=== PATIENT | female | born 1955 | race African-American/Black ===

== ENCOUNTER 2018-01-02 09:24 | Outpatient (CLI) | payer OTHER ==
--- NOTE | 2018-01-03 15:10 | MMO ---
BILATERAL SCREENING MAMMOGRAM: Date: 01/02/18 INDICATION: Annual exam. COMPARISON: None. Last mammogram done over 10 years ago was unable to be obtained for comparison, so this will se rve as the patient's baseline exam. FINDINGS: Interpretation of this exam was assisted with computer-aided detection. There are scattered fibroglandular elements bilaterally. There are benign-appearing calcifications bilaterally. There is a pacemaker generator overlying the left chest wall, slightly limiting exam. No suspicious mass, cluster of microcalcifications, or area of architectural distortion is evident. IMPRESSION: BIRADS 2: Benign Finding(s) Recommend routine annual mammographic screening. POS: [facility]
== END 2018-01-02 09:25 | disposition home or self-care (01) ==
LOC: SCSMAMMO 09:24
PROVIDERS: ATTEND Family Medicine
DX: Z12.31 Encounter for screening mammogram for malignant neoplasm of breast (principal)
CPT/HCPCS: 77067

== ENCOUNTER 2018-04-09 07:09 | Day surgery (SDC) | payer OTHER ==
[2018-04-08 15:48] VITALS: BMI 34.2
--- NOTE | 2018-04-09 09:56 | OP ---
DATE OF PROCEDURE: 04/09/2018 SURGEON: Akira Mendoza M.D. PROCEDURE: Screening colonoscopy. PREOPERATIVE DIAGNOSIS: Average risk colon cancer screening. OPERATIVE NOTE: Informed consent was obtained from the patient. She was sedated with total intraven ous anesthesia. The rectal exam was normal. The preparation quality was excellent. The colonoscope was advanced to the cecum where the ileocecal valve and appendiceal orifice were clearly identified. The colonic mucosa was normal throughout. There was moderate diverticulosis throughout the colon. Retroflex views in the rectum were normal. IMPRESSION: 1. Moderate diverticulosis throughout the colon. 2. Otherwise normal screening colonoscopy. RECOMMENDATIONS: 1. Repeat colonoscopy in 10 years. 2. High fiber diet.
[2018-04-09] MEDS ORDERED: Lidocaine 1% PF 5 ML VIAL ONE (11:24)
[2018-04-09] MEDS ORDERED: PROPOFOL 200 MG/20 ML VIAL ONE (11:24)
== END 2018-04-09 10:15 | disposition home or self-care (01) ==
LOC: SDC 07:09
PROVIDERS: ATTEND Internal Medicine Gastroenterology
PROC: 0DJD8ZZ Inspection of Lower Intestinal Tract, Via Natural or Artificial Opening Endoscopic (ICD-10-PCS; principal; 2018-04-09)
DX: Z12.11 Encounter for screening for malignant neoplasm of colon (principal); K57.30 Diverticulosis of large intestine without perforation or abscess without bleeding; E11.9 Type 2 diabetes mellitus without complications; B19.20 Unspecified viral hepatitis C without hepatic coma; I11.0 Hypertensive heart disease with heart failure; I50.9 Heart failure, unspecified; E78.00 Pure hypercholesterolemia, unspecified; G47.30 Sleep apnea, unspecified; Z87.891 Personal history of nicotine dependence; Z88.1 Allergy status to other antibiotic agents; Z79.82 Long term (current) use of aspirin; Z79.899 Other long term (current) drug therapy
CPT/HCPCS: J2001; J2704

== ENCOUNTER 2020-03-09 07:52 | Outpatient (CLI) | payer OTHER ==
--- NOTE | 2020-03-09 10:10 | ULT ---
HEPATIC ULTRASOUND WITH ALMANZAR SCALE AND COLOR FLOW AND SPECTRAL DOPPLER IMAGING: Date: 03/09/2020 HISTORY: Hepatitis C. FINDINGS: The liver demonstrates increased echogenicity consistent with fatty infiltration. No focal mass or in trahepatic ductal dilatation is seen. The gallbladder is normal without gallstones, gallbladder wall thickening, or pericholecystic fluid. The common duct measures 5.0 mm in diameter. The spleen is norm al, measuring 11.0 cm in length. The visualized portions of the pancreas are unremarkable. No free fl uid is seen. There is normal flow and spectral waveforms in the hepatic, portal, and splenic vasculature. IMPRESSION: Fatty liver. POS: [facility]
== END 2020-03-09 07:53 | disposition home or self-care (01) ==
LOC: BICULT 07:52
PROVIDERS: ATTEND Physician Assistant Medical
DX: B18.2 Chronic viral hepatitis C (principal); K76.0 Fatty (change of) liver, not elsewhere classified
CPT/HCPCS: 76705

== ENCOUNTER 2020-05-09 15:38 | Inpatient (IN) | payer OTHER ==
[~2020-05-09 15:38] MED LIST: Iopamidol-370 76% 500 ML 1 ML ONE
[2020-05-09] MEDS ORDERED: Ondansetron PF 4 MG/2 ML Vial ONE (16:02)
[2020-05-09] MEDS ORDERED: Fentanyl 100 MCG/2 ML VIAL ONE ×3 (16:02→18:43)
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
[2020-05-09 17:23] LABS: Hemoglobin 15.3 g/dL (12.0-16.0); Mean Corpuscular Hemoglobin 33.9 pg (27.0-31.0); Mean Corpuscular Volume 99.6 fL (78.0-98.0); Mean Platelet Volume 7.8 fL (7.4-10.4); Platelet Count 194 thou/uL (130-400); RBC Distribution Width 12.1 % (11.5-14.5); Red Blood Cell (RBC) Count 4.51 mill/uL (4.20-5.40); White Blood Cell (WBC) Count 10.2 thou/uL (4.8-10.8)
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
[2020-05-09 17:40] LABS: ALT (SGPT) 61 U/L (8-55); AST (SGOT) 65 U/L (5-34); Albumin 4.1 g/dL (3.4-4.8); Alkaline Phosphatase 118 U/L (40-110); Anion Gap 18 mmol/L (10-20); BUN (Urea Nitrogen) 16 mg/dL (9.8-20.1); Bilirubin, Total 0.5 mg/dL (0.2-1.2); Calc. Creatinine Clearance 0 mL/min (70-130); Calcium 8.9 mg/dL (7.8-10.44); Carbon Dioxide 21 mmol/L (23-31); Chloride 100 mmol/L (98-107); Estimated GFR-MDRD 87; Globulin 4.4 g/dL (2.4-3.5); Glucose 127 mg/dL (80-115); Protein, Total 8.5 g/dL (6.0-8.3); Sodium 134 mmol/L (136-145)
[2020-05-09 17:48] LABS: Band 5 % (5-11); Eosinophils 1 % (0-10); Lymphocytes 61 % (21-51); MDiff Complete? YES; Macrocytosis SLIGHT = 6-15 cells (100X) (0-5/hpf); Monocytes 6 % (0-10); Neutrophil 25 % (42-75); Platelet Morphology Comment Appears Adequate; Polychromasia SLIGHT = 2-3 cells (100X) (0-2/hpf); Reactive Lymphocytes 2 % (0-10)
[2020-05-09 18:02] LABS: CKMB 4.8 ng/mL (0-6.6)
[2020-05-09] MEDS ORDERED: Ketorolac Tromethamine 30 MG/ML VIAL ONE (18:43)
[2020-05-09] MEDS ORDERED: Dextrose 5% in Water 1,000 ML IV PRN (21:39)
[2020-05-09] MEDS ORDERED: hydrALAZINE 20 MG/ML VIAL SLOW IVP PRN (21:39)
[2020-05-09] MEDS ORDERED: Ondansetron PF 4 MG/2 ML Vial IVP PRN (21:39)
[2020-05-09] MEDS ORDERED: HumaLOG 300 UNITS/3 ML VIAL SC PRN (21:39)
[2020-05-09] MEDS ORDERED: Ondansetron ODT 4 MG TAB PO PRN (21:39)
[2020-05-09] MEDS ORDERED: Dextrose 50% Abboject 50 ML SYRINGE SLOW IVP PRN (21:39)
[2020-05-09] MEDS ORDERED: Ketorolac Tromethamine 30 MG/ML VIAL IVP SCH (21:45)
[2020-05-09] MEDS ORDERED: Famotidine 20 MG TAB PO SCH (22:00)
[2020-05-09 22:17] LABS: Magnesium 1.6 mg/dL (1.6-2.6); Phosphorus 5.2 mg/dL (2.3-4.7)
[2020-05-09 22:22] LABS: Troponin I 0.171 ng/mL (< 0.028)
[2020-05-09] MEDS ORDERED: Magnesium Sulfate 3 GM in Sodium Chloride 0.9% 250 ML 250 ML IVPB SCH (22:30)
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
[2020-05-09] MEDS: Sodium Chloride 0.9% 1,000 ML IV SCH (23:46)
[2020-05-09 23:59] VITALS: BMI 38.0
[2020-05-10 00:18] LABS: Troponin I 0.173 ng/mL (< 0.028)
[2020-05-10] MEDS: Ketorolac Tromethamine 30 MG/ML VIAL IVP SCH ×3 (05:57→18:31)
[2020-05-10 07:04] LABS: #Eosinphils 0.1 thou/uL (0.0-0.7); #Monocytes 0.6 thou/uL (0.11-0.59); #Neutrophils 3.1 thou/uL (1.40-6.50); %Basophils 0.6 % (0.0-1.0); %Eosinophils 0.8 % (0.0-10.0); %Lymphocytes 44.2 % (21.0-51.0); %Monocytes 8.1 % (0.0-10.0); %Neutrophils 46.3 % (42.0-75.0); Hemoglobin 13.7 g/dL (12.0-16.0); Mean Corpuscular HGB CONC 34.2 g/dL (32.0-36.0); Mean Corpuscular Volume 99.6 fL (78.0-98.0); Platelet Count 183 thou/uL (130-400); RBC Distribution Width 12.1 % (11.5-14.5); Red Blood Cell (RBC) Count 4.02 mill/uL (4.20-5.40); White Blood Cell (WBC) Count 6.8 thou/uL (4.8-10.8)
[2020-05-10 07:09] LABS: Anion Gap 15 mmol/L (10-20); BUN (Urea Nitrogen) 16 mg/dL (9.8-20.1); Calc. Creatinine Clearance 129 mL/min (70-130); Calcium 8.5 mg/dL (7.8-10.44); Carbon Dioxide 21 mmol/L (23-31); Chloride 102 mmol/L (98-107); Estimated GFR-MDRD Greater than 90; Glucose 120 mg/dL (80-115); Magnesium 2.5 mg/dL (1.6-2.6); Phosphorus 3.9 mg/dL (2.3-4.7); Potassium 4.3 mmol/L (3.5-5.1); Sodium 134 mmol/L (136-145)
[2020-05-10] MEDS ORDERED: CEFAZOLIN 2 GM in Premix Bag 1 BAG IVPB SCH (07:45)
[2020-05-10] MEDS: Carvedilol 6.25 MG TAB PO SCH ×2 (08:20→18:31)
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
[2020-05-10] MEDS: Sodium Chloride 0.9% 1,000 ML IV SCH (08:31)
[2020-05-10] MEDS ORDERED: PHENYLEPHRINE-NS 100 MCG/ML 10 ML SYRINGE ONE (09:48)
[2020-05-10] MEDS ORDERED: Bupivacaine HCl 0.5%/Epinephrine 1:200,000/PF 30 ml Vial ONE (09:48)
[2020-05-10] MEDS ORDERED: Ondansetron PF 4 MG/2 ML Vial ONE (09:48)
[2020-05-10] MEDS ORDERED: PROPOFOL 200 MG/20 ML VIAL ONE (09:48)
[2020-05-10] MEDS ORDERED: Dexamethasone 20 MG/5 ML VIAL ONE (09:48)
[2020-05-10] MEDS ORDERED: Rocuronium Bromide 10 MG/ML (10ML VIAL) ONE (09:48)
[2020-05-10] MEDS ORDERED: Lidocaine 1% PF 5 ML VIAL ONE (09:48)
[2020-05-10] MEDS: Famotidine 20 MG TAB PO SCH ×2 (10:14→21:12)
[2020-05-10 11:56] LABS: SARS-CoV-2 MS2 Positive; SARS-CoV-2 N Gene Negative; SARS-CoV-2 S Gene Negative; SARS-CoV-2 by NAA Not Detected (NotDetected); SARS-CoV-2 orf1ab Negative
[2020-05-10] MEDS ORDERED: Fentanyl 100 MCG/2 ML VIAL ONE ×2 (13:14→13:18)
[2020-05-10] MEDS ORDERED: Midazolam HCl 2 mg/2 ml Vial ONE (13:18)
[2020-05-10] MEDS ORDERED: Phenylephrine 10 MG/ML VIAL ONE (15:50)
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
[2020-05-10] MEDS ORDERED: SUGAMMADEX SODIUM 500 MG/5 ML VIAL ONE (16:23)
--- NOTE | 2020-05-10 16:31 | RAD ---
Left humerus 2 views intraoperative fluoroscopy HISTORY: Fracture. FINDINGS: Intraoperative fluoroscopy was provided for internal fixation as performed by Dr. Mckeon. Spot fluoroscopic images show metallic compression sideplate and multiple screws transfixing the humeral neck fracture, in anatomic alignment. Fluoroscopy time 14 seconds.
[2020-05-10] MEDS: CEFAZOLIN 2 GM in Premix Bag 1 BAG IVPB SCH (21:14)
[2020-05-11] MEDS: Ketorolac Tromethamine 30 MG/ML VIAL IVP SCH (00:01)
[2020-05-11] MEDS: HumaLOG 300 UNITS/3 ML VIAL SC PRN ×3 (05:50→17:09)
[2020-05-11] MEDS: CEFAZOLIN 2 GM in Premix Bag 1 BAG IVPB SCH (05:50)
[2020-05-11 05:52] LABS: Troponin I 0.159 ng/mL (< 0.028)
[2020-05-11] MEDS: HYDROcodone/Acetaminophen 10/325 mg Tablet PO PRN ×3 (06:45→23:37)
[2020-05-11] MEDS: Cyclobenzaprine 10 MG TAB PO PRN (06:48)
[2020-05-11] MEDS: Carvedilol 6.25 MG TAB PO SCH ×2 (09:02→17:07)
[2020-05-11] MEDS: Famotidine 20 MG TAB PO SCH ×2 (09:02→20:24)
[2020-05-11] MEDS ORDERED: Scopolamine 1.5 mg/72 hour Patch TD SCH (10:00)
[2020-05-11] MEDS ORDERED: Enoxaparin Sodium 40 MG/0.4 ML SYRINGE SC SCH (10:00)
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
[2020-05-12] MEDS: Cyclobenzaprine 10 MG TAB PO PRN (05:36)
[2020-05-12] MEDS: HumaLOG 300 UNITS/3 ML VIAL SC PRN ×2 (05:37→11:29)
[2020-05-12 08:08] VITALS: TEMP 98.1
[2020-05-12] MEDS: Carvedilol 6.25 MG TAB PO SCH (08:52)
[2020-05-12] MEDS: HYDROcodone/Acetaminophen 10/325 mg Tablet PO PRN (08:52)
[2020-05-12] MEDS ORDERED: Enoxaparin Sodium 40 MG/0.4 ML SYRINGE SC SCH (09:00)
[2020-05-12] MEDS ORDERED: traMADol HCl 50 MG TAB PO PRN (10:33)
[2020-05-12] MEDS ORDERED: Acetaminophen 325 MG TAB PO SCH (11:00)
[2020-05-12] MEDS ORDERED: Ibuprofen 200 MG TAB PO SCH (11:00)
[2020-05-12 11:56] VITALS: BP 150/87
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
== END 2020-05-12 14:20 | disposition home or self-care (01) | DRG 493 ==
LOC: ERS 15:38 → ERHOLD 21:04 → SURG B 23:04
PROVIDERS: ADMIT Surgery; ATTEND Surgery
PROC: 0PSD04Z Reposition Left Humeral Head with Internal Fixation Device, Open Approach (ICD-10-PCS; principal; 2020-05-10)
DX: S42.292A Other displaced fracture of upper end of left humerus, initial encounter for closed fracture (principal); E87.1 Hypo-osmolality and hyponatremia; R79.89 Other specified abnormal findings of blood chemistry; E11.9 Type 2 diabetes mellitus without complications; I25.10 Atherosclerotic heart disease of native coronary artery without angina pectoris; I50.9 Heart failure, unspecified; S20.01XA Contusion of right breast, initial encounter; I11.0 Hypertensive heart disease with heart failure; Z11.59 Encounter for screening for other viral diseases; V43.52XA Car driver injured in collision with other type car in traffic accident, initial encounter; Y92.410 Unspecified street and highway as the place of occurrence of the external cause; Z88.5 Allergy status to narcotic agent; Z98.51 Tubal ligation status; Z95.810 Presence of automatic (implantable) cardiac defibrillator; Z79.899 Other long term (current) drug therapy; Z79.4 Long term (current) use of insulin; Z79.82 Long term (current) use of aspirin
CPT/HCPCS: 36415; 36416; 70450; 71260; 72125; 74177; 76000; 80048; 80053; 82553; 83735; 84100; 84484; 85025; 87635; 93005; 96374; 96375; 96376; C1713; G0390; J0360; J0670; J0690; J1100; J1650; J1885; J2250; J2370; J2405; J2704; J3010; J3475; J7050; Q9967; U0003

== ENCOUNTER 2020-06-20 17:16 | Emergency (ER) | payer OTHER ==
--- NOTE | 2020-06-20 18:01 | RAD ---
Exam: Chest one view HISTORY:Dizziness. Comparison: 02/21/2017 FINDINGS: Cardiac silhouette:Cardiac megaly. Single lead left-sided defibrillator, unchanged Aorta: Unremarkable Pulmonary vessels: Normal Costophrenic angles: Clear LUNGS: No masses or consolidation. Pneumothorax: None Osseous abnormalities: Internal fixation hardware projects over the visualized left humerus. IMPRESSION: Negative. No evidence of congestive heart failure.
[2020-06-20] MEDS ORDERED: diphenhydrAMINE 50 MG/ML VIAL ONE (18:25)
[2020-06-20] MEDS ORDERED: Metoclopramide HCl 10 MG/2 ML VIAL ONE (18:25)
[2020-06-20 18:31] LABS: #Basophils 0.1 thou/uL (0.0-0.2); #Eosinphils 0.2 thou/uL (0.0-0.7); #Lymphocytes 2.5 thou/uL (1.20-3.40); #Monocytes 0.6 thou/uL (0.11-0.59); %Basophils 0.8 % (0.0-1.0); %Lymphocytes 39.1 % (21.0-51.0); %Monocytes 9.4 % (0.0-10.0); %Neutrophils 47.7 % (42.0-75.0); Hemoglobin 14.2 g/dL (12.0-16.0); Mean Corpuscular HGB CONC 33.7 g/dL (32.0-36.0); Mean Corpuscular Hemoglobin 32.8 pg (27.0-31.0); Mean Corpuscular Volume 97.3 fL (78.0-98.0); Mean Platelet Volume 8.2 fL (7.4-10.4); Platelet Count 248 thou/uL (130-400); RBC Distribution Width 11.1 % (11.5-14.5); Red Blood Cell (RBC) Count 4.33 mill/uL (4.20-5.40); White Blood Cell (WBC) Count 6.3 thou/uL (4.8-10.8)
[2020-06-20 18:48] LABS: ALT (SGPT) 80 U/L (8-55); AST (SGOT) 63 U/L (5-34); Alkaline Phosphatase 173 U/L (40-110); Anion Gap 16 mmol/L (10-20); BUN (Urea Nitrogen) 22 mg/dL (9.8-20.1); Bilirubin, Total 0.4 mg/dL (0.2-1.2); Calc. Creatinine Clearance 0 mL/min (70-130); Calcium 9.4 mg/dL (7.8-10.44); Carbon Dioxide 26 mmol/L (23-31); Chloride 98 mmol/L (98-107); Estimated GFR-MDRD 67; Globulin 4.9 g/dL (2.4-3.5); Glucose 166 mg/dL (80-115); Lipase 56 U/L (8-78); Potassium 4.3 mmol/L (3.5-5.1); Protein, Total 8.9 g/dL (6.0-8.3); Sodium 136 mmol/L (136-145)
[2020-06-20 19:10] LABS: CKMB 0.8 ng/mL (0-6.6)
--- NOTE | 2020-06-20 19:10 | CT ---
Exam: Head CT without contrast HISTORY: Pain. Vomiting and nausea. COMPARISON: 05/09/2020 FINDINGS: Hemorrhage: No intraparenchymal hemorrhage or extra-axial hematoma. Brain parenchyma: Cortical cooley-white matter differentiation is preserved. No mass effect or midline shift. Basilar cisterns are patent. Ventricular system: Ventricles and sulci are patent and symmetric. Calvarium: Intact. Sinuses and mastoid air cells: Mild mucosal thickening of the left sphenoid sinus. IMPRESSION: No acute intracranial process.
[2020-06-20] MEDS ORDERED: Meclizine HCl 25 MG TAB ONE (20:06)
[2020-06-20 21:08] LABS: Bilirubin Negative (Negative); Blood, Urine Negative (Negative); Clarity Clear (Clear); Glucose, Urine (Dipstick) Normal (Negative); Ketone, Urine Negative (Negative); Leukocyte Negative Leu/uL (Negative); Nitrite Negative (Negative); Protein, Urine (Dipstick) Negative (Neg-Trace); Specific Gravity, Urine 1.021 (1.002-1.036); Urobilinogen Normal mg/dL (Less than 2)
[2020-06-20 22:42] LABS: CKMB 0.9 ng/mL (0-6.6)
== END 2020-06-20 22:49 | disposition home or self-care (01) ==
LOC: ERS 17:16
DX: R11.2 Nausea with vomiting, unspecified (principal); R19.7 Diarrhea, unspecified; R42 Dizziness and giddiness; E11.9 Type 2 diabetes mellitus without complications; I11.0 Hypertensive heart disease with heart failure; I50.9 Heart failure, unspecified; F17.200 Nicotine dependence, unspecified, uncomplicated; Z79.899 Other long term (current) drug therapy; Z79.82 Long term (current) use of aspirin; Z79.4 Long term (current) use of insulin
CPT/HCPCS: 36415; 70450; 71045; 80053; 81003; 82553; 83690; 83880; 84484; 85025; 93005; 94760; 96361; 96374; 96375; J1200; J2765

== ENCOUNTER 2021-02-04 10:52 | Emergency (ER) | payer OTHER ==
[2021-02-04 12:05] LABS: #Eosinphils 0.2 thou/uL (0.0-0.7); #Lymphocytes 2.5 thou/uL (1.20-3.40); #Monocytes 0.5 thou/uL (0.11-0.59); #Neutrophils 1.8 thou/uL (1.40-6.50); %Basophils 0.9 % (0.0-1.0); %Eosinophils 4.4 % (0.0-10.0); %Lymphocytes 49.7 % (21.0-51.0); %Monocytes 9.1 % (0.0-10.0); %Neutrophils 35.9 % (42.0-75.0); Hemoglobin 14.6 g/dL (12.0-16.0); Mean Corpuscular HGB CONC 32.5 g/dL (32.0-36.0); Mean Corpuscular Hemoglobin 31.9 pg (27.0-31.0); Mean Corpuscular Volume 98.3 fL (78.0-98.0); Mean Platelet Volume 7.7 fL (7.4-10.4); Platelet Count 213 thou/uL (130-400); RBC Distribution Width 12.1 % (11.5-14.5); Red Blood Cell (RBC) Count 4.58 mill/uL (4.20-5.40); White Blood Cell (WBC) Count 5.1 thou/uL (4.8-10.8)
[2021-02-04 12:13] LABS: ALT (SGPT) 10 U/L (8-55); AST (SGOT) 16 U/L (5-34); Albumin 4.3 g/dL (3.4-4.8); Alkaline Phosphatase 134 U/L (40-110); Anion Gap 10 mmol/L (10-20); BUN (Urea Nitrogen) 19 mg/dL (9.8-20.1); Bilirubin, Total 0.6 mg/dL (0.2-1.2); Calc. Creatinine Clearance 0 mL/min (70-130); Carbon Dioxide 30 mmol/L (23-31); Chloride 100 mmol/L (98-107); Globulin 4.6 g/dL (2.4-3.5); Glucose 62 mg/dL (80-115); Potassium 4.3 mmol/L (3.5-5.1); Protein, Total 8.9 g/dL (5.8-8.1); Sodium 136 mmol/L (136-145)
[2021-02-04 12:49] LABS: Bilirubin Negative (Negative); Blood, Urine Negative (Negative); Clarity Clear (Clear); Glucose, Urine (Dipstick) Greater than 1000 mg/dL (Negative); Ketone, Urine Negative (Negative); Leukocyte 250 Leu/uL (Negative); Nitrite Negative (Negative); Protein, Urine (Dipstick) Negative (Neg-Trace); RBC/HPF 0-3 HPF (0-3); Specific Gravity, Urine 1.011 (1.002-1.036); Squamous Epithelial 0-3 HPF (0-3); Urobilinogen Normal mg/dL (Less than 2)
[2021-02-04 12:53] LABS: Bacteria/HPF Rare-Few HPF (None Seen)
== END 2021-02-04 13:53 | disposition home or self-care (01) ==
LOC: ERS 10:52
DX: N39.0 Urinary tract infection, site not specified (principal); E11.649 Type 2 diabetes mellitus with hypoglycemia without coma; I11.0 Hypertensive heart disease with heart failure; I50.9 Heart failure, unspecified; Z87.891 Personal history of nicotine dependence; Z79.82 Long term (current) use of aspirin; Z79.84 Long term (current) use of oral hypoglycemic drugs; Z79.899 Other long term (current) drug therapy
CPT/HCPCS: 36416; 80053; 81003; 81015; 85025; 93005

== ENCOUNTER 2021-02-20 19:00 | Outpatient (CLI) | payer OTHER | END 2021-02-20 19:01 | disposition home or self-care (01) | LOC: SLEEPLAB 19:00 | PROVIDERS: ATTEND Family Medicine | DX: G47.33 Obstructive sleep apnea (adult) (pediatric) (principal); R53.83 Other fatigue; R09.89 Other specified symptoms and signs involving the circulatory and respiratory systems; G47.00 Insomnia, unspecified; G47.10 Hypersomnia, unspecified; R51.9 Headache, unspecified; R06.83 Snoring; E11.9 Type 2 diabetes mellitus without complications; I10 Essential (primary) hypertension; E66.9 Obesity, unspecified; Z68.41 Body mass index [BMI] 40.0-44.9, adult | CPT/HCPCS: 95810 ==

== ENCOUNTER 2021-03-28 19:30 | Outpatient (CLI) | payer OTHER | END 2021-03-28 19:31 | disposition home or self-care (01) | LOC: SLEEPLAB 19:30 | PROVIDERS: ATTEND Family Medicine | DX: G47.33 Obstructive sleep apnea (adult) (pediatric) (principal); R53.83 Other fatigue; R09.89 Other specified symptoms and signs involving the circulatory and respiratory systems; R06.83 Snoring; R51.9 Headache, unspecified; G47.00 Insomnia, unspecified; E11.9 Type 2 diabetes mellitus without complications; I10 Essential (primary) hypertension; G47.10 Hypersomnia, unspecified; E66.9 Obesity, unspecified; Z68.41 Body mass index [BMI] 40.0-44.9, adult | CPT/HCPCS: 95811 ==

== ENCOUNTER 2021-04-12 11:31 | Outpatient (CLI) | payer OTHER | END 2021-04-12 11:32 | disposition home or self-care (01) | LOC: BICULT 11:31 | PROVIDERS: ATTEND Physician Assistant Medical | DX: B18.2 Chronic viral hepatitis C (principal); K76.0 Fatty (change of) liver, not elsewhere classified | CPT/HCPCS: 76705 ==